=== PATIENT | female | born 1985 | race Caucasian/White ===

== ENCOUNTER 2018-01-01 08:30 | Observation (INO) | payer OTHER ==
[~2018-01-01] VITALS: Ht 162.6 cm; Wt 87.2 kg
[~2018-01-01 08:30] MED LIST: [UNRECOGNIZED DRUG - CODE] PO
[2018-01-01 08:52] VITALS: BP 110/53
== END 2018-01-01 10:15 | disposition home or self-care (01) ==
LOC: 4S 08:30
PROVIDERS: ADMIT Obstetrics & Gynecology; ATTEND Obstetrics & Gynecology
DX: Z34.83 Encounter for supervision of other normal pregnancy, third trimester (principal); Z3A.37 37 weeks gestation of pregnancy
CPT/HCPCS: 36415; 59025; 82947; 83036; G0378

== ENCOUNTER 2018-01-12 11:30 | Inpatient (IN) | payer OTHER ==
[~2018-01-12] VITALS: Ht 165.1 cm; Wt 87.5 kg
[~2018-01-12 11:30] MED LIST changes: +CITRIC ACID/SODIUM CITRATE 30 ML SOLUTION UDCUP PO ONE; +METOCLOPRAMIDE HCL 5 MG/ML 2 ML VIAL IVP ONE; +RINGERS SOLUTION,LACTATED 1,000 ML IV ONE
[2018-01-12 11:57] LABS: BASOPHILS % (AUTO) 0.5 % (0.0-2.0); EOSINOPHILS % (AUTO) 1.5 % (1.0-6.0); HEMATOCRIT 33.7 % (36-46); HEMOGLOBIN 11.6 g/dL (12.0-16.0); LYMPHOCYTES # (AUTO) 1.6 K/uL (1.0-4.8); LYMPHOCYTES % (AUTO) 24.7 % (22.0-44.0); MEAN CORPUSCULAR HEMOGLOBIN 29.3 pg (26.0-34.0); MEAN CORPUSCULAR HGB CONC 34.5 G/dL (31.0-37.0); MEAN CORPUSCULAR VOLUME 85 fL (80-100); MONOCYTES # (AUTO) 0.5 K/uL (0.1-1.0); MONOCYTES % (AUTO) 8.3 % (2.0-9.0); NEUTROPHILS # (AUTO) 4.1 K/uL (1.8-7.7); PLATELET COUNT (AUTO) 230 K/uL (150-450); RED BLOOD CELL COUNT(AUTO) 3.96 MIL/uL (4.00-5.20)
[2018-01-12] MEDS ORDERED: FentaNYL CITRATE-PF 100 MCG/2 ML VIAL IVP ONE (12:00)
[2018-01-12] MEDS ORDERED: MORPHINE SULFATE/PF 0.5 MG/ML 10 ML AMP IVP ONE (12:00)
[2018-01-12 13:52] VITALS: BP 101/55
[2018-01-12] MEDS ORDERED: HYDROmorphone 2 MG/ML SYRINGE IVP PRN (14:00)
[2018-01-12] MEDS ORDERED: NALOXONE HCL 0.4 MG/ML VIAL IVP PRN (14:00)
[2018-01-12] MEDS ORDERED: ONDANSETRON HCL 4 MG/2 ML VIAL IVP PRN (14:00)
[2018-01-12] MEDS ORDERED: FentaNYL CITRATE-PF 100 MCG/2 ML VIAL IVP PRN (14:00)
[2018-01-12] MEDS ORDERED: DiphenhydrAMINE HCL 50 MG/ML VIAL IVP PRN (14:00)
[2018-01-12] MEDS ORDERED: MEPERIDINE HCL/PF 25 MG/0.5 ML AMP IVP PRN (14:00)
[2018-01-12] MEDS ORDERED: ACETAMINOPHEN/CODEINE 300-30 MG TABLET PO PRN (14:15)
[2018-01-12] MEDS ORDERED: LANOLIN 7 GM OINTMENT TP PRN (14:15)
[2018-01-12] MEDS ORDERED: METHYLERGONOVINE MALEATE 0.2 MG/ML VIAL ONE (14:27)
[2018-01-12] MEDS: DEXTROSE 5%-0.45% SODIUM CHL 1,000 ML IV SCH ×3 (15:18→23:53)
[2018-01-13] MEDS: FentaNYL CITRATE-PF 100 MCG/2 ML VIAL IVP PRN ×2 (00:39→06:23)
[2018-01-13] MEDS: DEXTROSE 5%-0.45% SODIUM CHL 1,000 ML IV SCH (04:03)
[2018-01-13] MEDS: ACETAMINOPHEN/CODEINE 300-30 MG TABLET PO PRN ×2 (08:29→12:08)
[2018-01-13] MEDS: IBUPROFEN 800 MG TABLET PO SCH ×3 (08:29→20:16)
[2018-01-13] MEDS: MAGNESIUM HYDROXIDE SUSPENSION 30 ML UDCUP PO SCH ×2 (08:29→20:16)
[2018-01-14] MEDS: ACETAMINOPHEN/CODEINE 300-30 MG TABLET PO PRN (00:30)
[2018-01-14] MEDS: IBUPROFEN 800 MG TABLET PO SCH ×3 (01:00→12:20)
[2018-01-14] MEDS: MAGNESIUM HYDROXIDE SUSPENSION 30 ML UDCUP PO SCH (08:14)
[2018-01-14] MEDS ORDERED: SENNA/DOCUSATE SODIUM 187-50 MG TABLET PO ONE (12:00)
[2018-01-14] MEDS ORDERED: IBUP-2071 PO (13:50)
== END 2018-01-14 16:20 | disposition home or self-care (01) | DRG 766 ==
LOC: 4S 11:30 → OBSVTOIN 11:30 → 4S 15:59
PROVIDERS: ADMIT Obstetrics & Gynecology; ATTEND Obstetrics & Gynecology
PROC: 10D00Z1 Extraction of Products of Conception, Low, Open Approach (ICD-10-PCS; principal; 2018-01-12)
PROC: 0UB70ZZ Excision of Bilateral Fallopian Tubes, Open Approach (ICD-10-PCS; 2018-01-12)
DX: O34.219 Maternal care for unspecified type scar from previous cesarean delivery (principal); Z3A.39 39 weeks gestation of pregnancy; Z37.0 Single live birth; Z30.2 Encounter for sterilization
CPT/HCPCS: 86850; 86900; 86901; 87081; 88302; J2210; J2274; J2765; J3010; J7120